=== PATIENT | male | born 1995 | race Caucasian/White ===

== ENCOUNTER 2019-03-04 16:07 | Emergency (ER) | payer BC | END 2019-03-04 17:10 | disposition home or self-care (01) | DX: S42.022A Displaced fracture of shaft of left clavicle, initial encounter for closed fracture (principal); S70.212A Abrasion, left hip, initial encounter; S50.312A Abrasion of left elbow, initial encounter; V19.9XXA Pedal cyclist (driver) (passenger) injured in unspecified traffic accident, initial encounter; Y93.55 Activity, bike riding ==